=== PATIENT | female | born 1930 | race Hispanic/Latino ===

== ENCOUNTER 2018-10-21 21:30 | Inpatient (IN) | payer MEDICARE | END 2018-10-27 18:20 | disposition home or self-care (01) | LOC: EDH 21:30 → EDHIP 10-22 00:22 → 4AH 10-22 01:13 → 4BH 10-25 10:39 → EDHIP 10-22 05:42 → 4AH 10-22 09:31 | PROC: 0FT44ZZ Resection of Gallbladder, Percutaneous Endoscopic Approach (ICD-10-PCS; principal; 2018-10-26 06:32) | DX: A41.9 Sepsis, unspecified organism (principal); K80.64 Calculus of gallbladder and bile duct with chronic cholecystitis without obstruction; N39.0 Urinary tract infection, site not specified; I10 Essential (primary) hypertension; E83.42 Hypomagnesemia; E11.9 Type 2 diabetes mellitus without complications ==

== ENCOUNTER 2019-12-15 01:48 | Emergency (ER) | payer MEDICARE ==
[~2019-12-15 01:48] MED LIST: ERYTHROMYCIN 0.5% OD; GLIM2TAB30 PO; LISI2.5T2 PO; METF-446 PO; TRAM50TA4 PO
[2019-12-15] MEDS ORDERED: LIDOCAINE HCL 1% 10 ML VIAL MISC ONE (01:49)
[2019-12-15] MEDS ORDERED: CEFTRIAXONE SODIUM 1 GM IVP ONE (01:49)
[2019-12-15 02:10] LABS: BASOPHILS % (AUTO) 0.1 % (0.0-5.0); EOSINOPHILS % (AUTO) 0.4 % (0.0-8.0); HEMATOCRIT 43.9 % (36-48); MEAN CORPUSCULAR HEMOGLOBIN 29.9 pg (27.0-33.0); MEAN CORPUSCULAR HGB CONC 32.1 g/dL (32.0-36.0); MONOCYTES % (AUTO) 9.2 % (3.0-13.0); PLATELET COUNT (AUTO) 248 K/uL (130-400); RED BLOOD CELL COUNT(AUTO) 4.72 MIL/uL (4.00-5.50); RED CELL DISTRIBUTION WIDTH 13.4 % (11.0-15.5); WHITE BLOOD COUNT (AUTO) 15.3 K/uL (4.8-10.8)
[2019-12-15 02:20] LABS: CREATININE 1.3 mg/dL (0.5-1.5); POTASSIUM 4.1 mmol/L (3.5-5.1)
[2019-12-15 02:23] LABS: ALBUMIN 3.9 g/dL (3.5-5.0); BILIRUBIN,TOTAL 0.5 mg/dL (0.2-1.0); TOTAL PROTEIN, SERUM 8.3 g/dL (6.0-8.3)
== END 2019-12-15 05:26 | disposition home or self-care (01) ==
LOC: EDH 01:48
DX: R10.9 Unspecified abdominal pain (principal); I25.10 Atherosclerotic heart disease of native coronary artery without angina pectoris; E11.9 Type 2 diabetes mellitus without complications; I10 Essential (primary) hypertension
CPT/HCPCS: 36415; 74176; 80053; 83690; 84484; 85025; 93005; 96374; 99285; J0696; J3490

== ENCOUNTER 2020-06-12 22:07 | Inpatient (IN) | payer MEDICARE ==
[~2020-06-12] VITALS: Ht 160 cm; Wt 62.9 kg
[2020-06-12 22:21] LABS: BASOPHILS % (AUTO) 0.5 % (0.0-5.0); EOSINOPHILS % (AUTO) 0.4 % (0.0-8.0); HEMATOCRIT 40.1 % (36-48); LYMPHOCYTES % (AUTO) 25.2 % (21.0-51.0); MEAN CORPUSCULAR HGB CONC 32.9 g/dL (32.0-36.0); MEAN CORPUSCULAR VOLUME 94.1 fL (79-99); MONOCYTES % (AUTO) 5.2 % (3.0-13.0); PLATELET COUNT (AUTO) 390 K/uL (130-400); RED BLOOD CELL COUNT(AUTO) 4.26 MIL/uL (4.00-5.50); RED CELL DISTRIBUTION WIDTH 13.2 % (11.0-15.5); WHITE BLOOD COUNT (AUTO) 11.5 K/uL (4.8-10.8)
[2020-06-12 22:30] LABS: CREATININE 1.3 mg/dL (0.5-1.5)
[2020-06-12 22:33] LABS: INR 1.05 (0.85-1.15); PARTIAL THROMBOPLASTIN TIME 26.2 SEC (26.3-35.5); PROTHROMBIN TIME 11.3 SEC (9.6-11.6)
[2020-06-12 22:35] LABS: ALBUMIN 3.1 g/dL (3.5-5.0); BILIRUBIN,TOTAL 0.6 mg/dL (0.2-1.0); TOTAL PROTEIN, SERUM 7.9 g/dL (6.0-8.3)
[2020-06-12 22:49] LABS: B-TYPE NATRIURETIC PEPTIDE 1300 pg/mL (0-100)
[2020-06-12] MEDS ORDERED: FUROSEMIDE 10 MG/ML 2ML VIAL ONE (23:01)
[2020-06-12] MEDS ORDERED: FUROSEMIDE 10 MG/ML 4ML VIAL ONE (23:01)
[2020-06-13] MEDS ORDERED: ENOXAPARIN SODIUM 80 MG/0.8 ML SQ ONE (00:22)
[2020-06-13] MEDS ORDERED: ONDANSETRON HCL 4 MG/2 ML VIAL IVP PRN (00:30)
[2020-06-13] MEDS ORDERED: MORPHINE SULFATE 4 MG/1ML SYG IV PRN (00:45)
[2020-06-13] MEDS ORDERED: ACETAMINOPHEN 325 MG TAB PO PRN (00:45)
[2020-06-13] MEDS ORDERED: LACTULOSE 20 GM/30 ML UDCUP PO PRN (00:45)
[2020-06-13] MEDS ORDERED: ONDANSETRON HCL 4 MG/2 ML VIAL IV PRN (00:45)
[2020-06-13] MEDS ORDERED: NITROGLYCERIN 0.4 MG SL TAB SL PRN (00:45)
[2020-06-13] MEDS ORDERED: MAG HYDROX/AL HYDROX/SIMETH ES 30 ML SUSP UDCUP PO PRN (00:45)
[2020-06-13 01:27] LABS: CHOLESTEROL 200 mg/dL (<200); HDL CHOLESTEROL 44 mg/dL (35-85); LDL DIRECT 126 mg/dL (0-99); TRIGLYCERIDES 211 mg/dL (30-200)
[2020-06-13 02:46] LABS: TROPONIN I 0.45 ng/mL (0.00-0.06)
[2020-06-13 03:00] VITALS: BP 117/61
[2020-06-13] MEDS: INSULIN HUMULIN R 100 UNIT/ML 3ML SQ SCH ×4 (07:12→21:29)
[2020-06-13 08:00] VITALS: BP 108/60
[2020-06-13] MEDS: ASPIRIN 81 MG EC TAB PO SCH (08:24)
[2020-06-13] MEDS: FAMOTIDINE 20MG TAB 20 MG TAB PO SCH ×2 (08:24→21:23)
[2020-06-13] MEDS: METOPROLOL TARTRATE 25 MG TAB PO SCH ×2 (08:24→21:23)
[2020-06-13] MEDS: FUROSEMIDE 10 MG/ML 2ML VIAL IV SCH ×2 (08:24→21:23)
[2020-06-13] MEDS: LISINOPRIL 5 MG TABLET PO SCH (08:25)
[2020-06-13 11:00] VITALS: BP 92/52
[2020-06-13] MEDS: ACETAMINOPHEN 325 MG TAB PO PRN (12:51)
--- NOTE | 2020-06-13 13:20 | NUR ---
VY NOTE/IA UNABLE TO MEET WITH PATIENT IN ROOM, NEXT OF KIN CALLED, ARGENTINA AMEZCUA. PER POA, PATIENT LIVES GRANDDAUGHTER, GRANDSON, GREAT GRANDDAUGHTER, IS SEMI INDEPENDENT, PER POA, HAS REQUESTED PROVIDER SERVICES, AND FEELS SAFE FOR PATIENT TO RETURN HOME ONCE DISCHARGE. Addendum: 06/13/20 at 1701 by UVALDO VERDIN RN CM Amended: Links added.
[2020-06-13 16:00] VITALS: BP 100/59
[2020-06-13 20:00] VITALS: BP 110/59
[2020-06-13] MEDS: ATORVASTATIN CALCIUM 20 MG TABLET PO SCH (21:23)
[2020-06-14] VITALS (7 sets, daily range): BP systolic 90–108; BP diastolic 51–67
[2020-06-14 06:15] LABS: BASOPHILS % (AUTO) 0.3 % (0.0-5.0); EOSINOPHILS % (AUTO) 1.2 % (0.0-8.0); HEMATOCRIT 39.1 % (36-48); LYMPHOCYTES % (AUTO) 24.1 % (21.0-51.0); MEAN CORPUSCULAR HEMOGLOBIN 30.4 pg (27.0-33.0); MEAN CORPUSCULAR VOLUME 95.1 fL (79-99); MONOCYTES % (AUTO) 6.7 % (3.0-13.0); NEUTROPHILS % (AUTO) 67.2 % (40.0-77.0); PLATELET COUNT (AUTO) 389 K/uL (130-400); RED BLOOD CELL COUNT(AUTO) 4.11 MIL/uL (4.00-5.50); RED CELL DISTRIBUTION WIDTH 13.3 % (11.0-15.5); WHITE BLOOD COUNT (AUTO) 8.6 K/uL (4.8-10.8)
[2020-06-14 06:35] LABS: ALBUMIN 2.9 g/dL (3.5-5.0); BILIRUBIN,TOTAL 0.5 mg/dL (0.2-1.0); CREATININE 1.4 mg/dL (0.5-1.5); MAGNESIUM 1.6 mg/dL (1.80-2.40); PHOSPHORUS 4.6 mg/dL (2.5-4.9); POTASSIUM 3.4 mmol/L (3.5-5.1); TOTAL PROTEIN, SERUM 7.4 g/dL (6.0-8.3)
[2020-06-14] MEDS: INSULIN HUMULIN R 100 UNIT/ML 3ML SQ SCH ×4 (06:50→20:34)
[2020-06-14] MEDS: LISINOPRIL 5 MG TABLET PO SCH (08:51)
[2020-06-14] MEDS: FAMOTIDINE 20MG TAB 20 MG TAB PO SCH ×2 (08:51→20:19)
[2020-06-14] MEDS: ASPIRIN 81 MG EC TAB PO SCH (08:52)
[2020-06-14] MEDS: METOPROLOL TARTRATE 25 MG TAB PO SCH ×2 (08:53→20:19)
[2020-06-14] MEDS: FUROSEMIDE 10 MG/ML 2ML VIAL IV SCH ×2 (09:04→20:18)
[2020-06-14] MEDS ORDERED: POTASSIUM CHLORIDE 10% ELIXIR 20 MEQ/15 ML UDCUP PO PRN (14:00)
[2020-06-14] MEDS ORDERED: POTASSIUM CHLORIDE 20MEQ/100ML 100 ML IV PRN (14:00)
[2020-06-14] MEDS ORDERED: LIDOCAINE HCL-MPF 1% 2ML VIAL IV PRN (14:00)
[2020-06-14] MEDS ORDERED: MAGNESIUM 2GM PREMIX 50ML 50 ML IV PRN (14:00)
[2020-06-14] MEDS ORDERED: SODIUM CHLORIDE 0.9% 500ML 500 ML IV SCH (14:18)
[2020-06-14] MEDS: POTASSIUM CHLORIDE 20 MEQ ERTAB PO PRN ×2 (17:33→20:23)
[2020-06-14] MEDS: ATORVASTATIN CALCIUM 20 MG TABLET PO SCH (20:19)
--- NOTE | 2020-06-14 20:20 | NUR ---
MEDS SHIFT ASSESSMENT DONE, PLEASE REFER TO CHART. DUE MEDS ADMINISTERED, TOLERATED WELL. KEPT RESTED AND COMFORTALBE WITH HOB ELEVATED. CALL LIGHT WITHIN REACH. WILL MONITOR PT.
--- NOTE | 2020-06-15 01:48 | NUR ---
ROUNDS PT IS FAIRLY ASLEEP. NO DISTRESS NOTED. KEPT UNDISTURBED FOR NOW. CALL LIGHT WITHIN REACH. WILL CONTINUE TO MONITOR.
[2020-06-15 03:48] VITALS: BP 98/57
[2020-06-15 05:01] LABS: BASOPHILS % (AUTO) 0.4 % (0.0-5.0); EOSINOPHILS % (AUTO) 1.1 % (0.0-8.0); HEMATOCRIT 39.3 % (36-48); MEAN CORPUSCULAR HEMOGLOBIN 30.4 pg (27.0-33.0); MEAN CORPUSCULAR HGB CONC 32.3 g/dL (32.0-36.0); MONOCYTES % (AUTO) 6.6 % (3.0-13.0); NEUTROPHILS % (AUTO) 64.4 % (40.0-77.0); PLATELET COUNT (AUTO) 405 K/uL (130-400); RED BLOOD CELL COUNT(AUTO) 4.18 MIL/uL (4.00-5.50); RED CELL DISTRIBUTION WIDTH 13.4 % (11.0-15.5); WHITE BLOOD COUNT (AUTO) 10.7 K/uL (4.8-10.8)
--- NOTE | 2020-06-15 05:15 | NUR ---
RADIOLOGY EMPLOYMENT LAW ATTORNEY IN TO DO X-RAY AT BEDSIDE. FIXED PT'S TELE PACK. DENIES ANY CONCERNS AT THIS TIME. KEPT COMFORTABLE. FOR MORE CARE.
[2020-06-15 05:20] LABS: ALBUMIN 3.1 g/dL (3.5-5.0); BILIRUBIN,TOTAL 0.4 mg/dL (0.2-1.0); CREATININE 1.4 mg/dL (0.5-1.5); MAGNESIUM 2.7 mg/dL (1.80-2.40); PHOSPHORUS 4.4 mg/dL (2.5-4.9); POTASSIUM 4.6 mmol/L (3.5-5.1); TOTAL PROTEIN, SERUM 7.5 g/dL (6.0-8.3)
[2020-06-15] MEDS: INSULIN HUMULIN R 100 UNIT/ML 3ML SQ SCH ×4 (06:06→21:00)
[2020-06-15 08:00] VITALS: BP 87/55
[2020-06-15 08:06] VITALS: BP 87/48
[2020-06-15] MEDS: ASPIRIN 81 MG EC TAB PO SCH (08:17)
[2020-06-15] MEDS: FAMOTIDINE 20MG TAB 20 MG TAB PO SCH ×2 (08:17→19:36)
[2020-06-15] MEDS: FUROSEMIDE 10 MG/ML 2ML VIAL IV SCH (08:17)
[2020-06-15] MEDS: LISINOPRIL 5 MG TABLET PO SCH (08:19)
[2020-06-15] MEDS: METOPROLOL TARTRATE 25 MG TAB PO SCH ×2 (08:19→19:36)
--- NOTE | 2020-06-15 08:21 | NUR ---
LOW B/P 87/48 LISINOPRIL AND LOPRESSOR HELD
[2020-06-15 11:43] VITALS: BP 96/66
--- NOTE | 2020-06-15 14:01 | NUR ---
PT PT CAME TO WORK WITH PATIENT FOR PHYSICAL THERAPY.
[2020-06-15 16:54] VITALS: BP 98/66
[2020-06-15] MEDS: ATORVASTATIN CALCIUM 20 MG TABLET PO SCH (19:36)
--- NOTE | 2020-06-15 19:40 | NUR ---
MEDS SHIFT ASSESSMENT DONE, PLEASE REFER TO CHART. DUE MEDS ADMINISTERED, TOLERATED WELL. KEPT RESTED AND COMFORTABLE IN BED. CALL LIGHT WITHIN REACH. WILL MONITOR PT. Addendum: 06/15/20 at 2323 by ADONAY CANTU RN RN Amended: Links added.
[2020-06-15 20:00] VITALS: BP 98/49
[2020-06-15] MEDS ORDERED: LISINOPRIL 5 MG TABLET PO SCH (21:00)
--- NOTE | 2020-06-15 21:00 | NUR ---
MEDS PT'S BP LOW AT 98/49, HELD LISINOPRIL DOSE AT THIS TIME. DUE INSULIN DOSE ADMINISTERED, TOLERATED WELL. KEPT RESTED AND COMFORTABLE. WILL MONITOR PT.
--- NOTE | 2020-06-15 22:50 | NUR ---
BATHE PT CALLED AND CLAIMS THAT SHE COULD NOT BREATH ENOUGH AIR. MAINTAINED PT ON O2 AT 2LPM. KEPT HOB ELEVATED. NOTED THAT PT HAD WET THE BED. PCP IN TO BATHE PT, TOLERATED WELL. WILL RE-ASSESS PT.
[2020-06-15] MEDS: ACETAMINOPHEN 325 MG TAB PO PRN (23:39)
--- NOTE | 2020-06-15 23:49 | NUR ---
PAIN PT COMPLAINTS OF GENERALIZED ACHING. MEDICATED WITH TYLENOL PO. KEPT COMFORTABLE IN BED. CALL LIGHT WITHIN REACH. WILL RE-ASSESS PT. Addendum: 06/16/20 at 0030 by ADONAY CANTU RN RN Amended: Links added.
[2020-06-16] VITALS: BP 101/62
--- NOTE | 2020-06-16 02:00 | NUR ---
ROUNDS PT RESDTIGN WELL, FAIRLY ASLEEP. NO DISTRESS NOTED. KEPT UNDISTURBED FOR NOW. WILL CONTINUE TO MONITOR.
[2020-06-16 03:40] VITALS: BP 108/59
--- NOTE | 2020-06-16 04:27 | NUR ---
PAIN PT COMPLAINTS OF PAIN ON HER STERNUM. CHANGED PT'S DIAPER. RE-POSITIONED IN BED WITH HOB ELEVATED. KEPT ON O2 PER NC. MEDICATED WITH TYLENOL PER PT REQUEST. WILL RE-ASSESS PT.
[2020-06-16] MEDS: INSULIN HUMULIN R 100 UNIT/ML 3ML SQ SCH ×3 (05:54→16:30)
[2020-06-16 06:21] LABS: HEMATOCRIT 38.1 % (36-48); MEAN CORPUSCULAR HEMOGLOBIN 30.4 pg (27.0-33.0); MEAN CORPUSCULAR HGB CONC 32.3 g/dL (32.0-36.0); MEAN CORPUSCULAR VOLUME 94.1 fL (79-99); RED BLOOD CELL COUNT(AUTO) 4.05 MIL/uL (4.00-5.50); RED CELL DISTRIBUTION WIDTH 13.5 % (11.0-15.5); WHITE BLOOD COUNT (AUTO) 8.3 K/uL (4.8-10.8)
[2020-06-16 06:54] LABS: BILIRUBIN,TOTAL 0.7 mg/dL (0.2-1.0); CREATININE 1.3 mg/dL (0.5-1.5); POTASSIUM 4.1 mmol/L (3.5-5.1); TOTAL PROTEIN, SERUM 7.3 g/dL (6.0-8.3)
[2020-06-16 08:23] VITALS: BP 102/55
[2020-06-16] MEDS: METOPROLOL TARTRATE 25 MG TAB PO SCH (09:00)
[2020-06-16] MEDS ORDERED: FUROSEMIDE 20 MG TABLET PO SCH (09:00)
[2020-06-16] MEDS: FAMOTIDINE 20MG TAB 20 MG TAB PO SCH (10:47)
[2020-06-16] MEDS: ASPIRIN 81 MG EC TAB PO SCH (10:47)
[2020-06-16] MEDS ORDERED: ATOR20TA65 PO (13:51)
[2020-06-16] MEDS ORDERED: METO25 PO (13:51)
[2020-06-16] MEDS ORDERED: LISI-617 PO (13:51)
[2020-06-16] MEDS ORDERED: AEC81 PO (13:51)
[2020-06-16] MEDS ORDERED: FURO20TA6 PO (13:51)
[2020-06-16 15:25] VITALS: BP 106/61
--- NOTE | 2020-06-16 16:46 | NUR ---
UPDATE- CONFIRMED, DOES NOT HAVE HOME OXYGEN DISCUSSED W MAT CUTTER, ORDERS TO VERIFY NEED FOR OXYGEN, HOME O2 EVAL ETC. WILL FOLLOW UP AFTER RT HOME O2 EVAL. EXPECT DC IN AM Addendum: 06/16/20 at 1648 by NATALIA LE RN CM Amended: Links added.
[2020-06-16 18:25] VITALS: BP 93/47
[2020-06-16 20:08] VITALS: BP 122/59
--- NOTE | 2020-06-16 21:00 | NUR ---
DISCHARGE PT TRANSPORTED DOWN THROUGH ED DEPARTMENT VIA WC WITH 3 LPM NC. PT XIOMARA TRANSPORT WELL, NO DISTRESS OBSERVED. IV AND TELE PACK WAS REMOVED BY PREVIOUS NURSE. PT PLACED IN GRANDDAUGHTER'S VEHICLE AND PLACED ON 3LMP O2 PERSONAL TANK. GRANDDAUGHTER PROVIDED WITH DISCHARGE PAPERWORK. NO OTHER QUESTIONS AT THIS TIME.
== END 2020-06-16 21:00 | disposition home or self-care (01) | DRG 293 ==
LOC: EDH 22:07 → EDHIP 06-13 00:35 → OBSVTOIN 06-13 00:35 → 3CH 06-13 02:16
PROVIDERS: ADMIT Internal Medicine Critical Care Medicine; ATTEND Internal Medicine Critical Care Medicine
DX: I11.0 Hypertensive heart disease with heart failure (principal); I50.23 Acute on chronic systolic (congestive) heart failure; E78.5 Hyperlipidemia, unspecified; E11.9 Type 2 diabetes mellitus without complications; I25.10 Atherosclerotic heart disease of native coronary artery without angina pectoris; F03.90 Unspecified dementia, unspecified severity, without behavioral disturbance, psychotic disturbance, mood disturbance, and anxiety; I25.5 Ischemic cardiomyopathy; I08.3 Combined rheumatic disorders of mitral, aortic and tricuspid valves; M62.81 Muscle weakness (generalized); R68.89 Other general symptoms and signs; Z90.49 Acquired absence of other specified parts of digestive tract; Z95.1 Presence of aortocoronary bypass graft; Z79.84 Long term (current) use of oral hypoglycemic drugs; Z79.899 Other long term (current) drug therapy; Z83.3 Family history of diabetes mellitus; Z82.49 Family history of ischemic heart disease and other diseases of the circulatory system
CPT/HCPCS: 36415; 71045; 71250; 80053; 80061; 82550; 82948; 83735; 83874; 83880; 84100; 84484; 85025; 85027; 85610; 85730; 87426; 93005; 93306; 93356; 94760; 97039; 99291; G0378; J1650; J1815; J1940; J3475; U0003